=== PATIENT | female | born 1950 | race Caucasian/White ===

== ENCOUNTER 2016-07-19 09:59 | Day surgery (SDC) | payer MEDICARE, OTHER ==
[~2016-07-19 09:59] MED LIST: PROPOFOL 500 MG/50 ML EMU IV ONE
[2016-07-19 12:07] VITALS: O2SAT 98
[2016-07-19 12:09] VITALS: BP 138/67; PULSE 78; RESP 18; TEMP 97.5
== END 2016-07-19 12:36 | disposition home or self-care (01) | DRG 951 ==
LOC: SURG 09:59
PROVIDERS: ATTEND Surgery
DX: Z12.11 Encounter for screening for malignant neoplasm of colon (principal); K57.30 Diverticulosis of large intestine without perforation or abscess without bleeding
CPT/HCPCS: J2001; J2704